=== PATIENT | male | born 1955 | race Caucasian/White ===

== ENCOUNTER 2023-09-27 06:16 | Day surgery (SDC) | payer OTHER, SELFPAY ==
[2023-09-27] VITALS (22 sets, daily range): BP systolic 110–177; BP diastolic 40–96; BMI 44.3
[2023-09-27] MEDS: NSS 408 ML IV (07:03)
[2023-09-27] MEDS: LOW STRENGTH ASPIRIN 81 MG PO (07:04)
[2023-09-27 07:57] LABS: ACT-LR - POC 158 Seconds (116-155)
--- NOTE | 2023-09-27 08:35 | ITS.CL.CATH ---
[employer] - Catheterization
Cardiac Catheterization
Procedure Report:
CARDIAC CATHETERIZATION REPORT
Date of Procedure: 09/27/2023
Referring: Chapin Colin MD
Indication: Chest pain
HEMODYNAMIC DATA
AO: 123/78
LV: 123/20
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
CORONARY ANGIOGRAPHY
Dominance: Right
Left Main: Normal
LAD: Mild luminal irregularities
Circumflex: Mild ectasia of the mid circumflex with mild luminal irregularities in the circumflex system
RCA: The RCA is a large ectatic vessel. There are trivial luminal irregularities in the proximal, mid, and distal RCA proximal to the takeoff of the large disease-free PDA. There is tapering of the AV groove branch distal to the takeoff of a small
first right posterolateral branch and proximal to the takeoff of the larger bifurcating second right posterolateral branch. The second right posterolateral branch has 80% ostial stenosis. The larger daughter branch is occluded distal to the lesion
and the smaller daughter branch is widely patent with normal flow. There is some [id number] collateral filling of the distal aspect of the occluded daughter branch. The RCA terminates with a tiny third RPL
Angioplasty: Due to his recent onset angina occurring with minimal activity, we opted to treat the 80% ostial stenosis in the bifurcating RPL 2. A 6 Sy[place] hockey-stick guide was used. Heparin was used for anticoagulation and Plavix 600 mg was
administered at the procedure conclusion. A BMW wire was successfully passed through the larger daughter branch of RPL 2 and this restored flow to the distal segment of the vessel. Angioplasty with a 2.25 x 12 trek was followed by placement of a
3.0 x 23 Xience ROLDAN which was deployed at 14 gil then postdilated with a 3.0 NC trek to 17 gil along its entire length. The final angiographic result was outstanding with no residual stenosis and nondenominational of normal distal flow to both branches
of the RPL 2
Closure Device: None-the procedure was performed via the right radial artery. The Shaun's test was normal prior to the procedure
Radiation (mGy): 1599
DAP (cm2.Gy): 128
Fluoroscopy time: 8.2 minutes
CONCLUSIONS
1: Mildly elevated LVEDP consistent with his known history of diastolic heart failure
2: Very mild anterolateral hypokinesis with EF 51%-this wall motion abnormality could be due to IVCD
3. 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
4. Successful stenting of 80% RPL 2 lesion using 3.0 x 23 Xience ROLDAN with outstanding angiographic result
5. Recommend dual antiplatelet therapy for 12 months and lifelong aspirin therapy. We will add high intensity statin at this time.
Copy to: Chapin Colin MD, Jaycob Giang MD
Domingo Alvarenga MD, [facility], [facility]
[2023-09-27] MEDS: NSS 1000 IV (08:40)
[2023-09-27 11:52] LABS: ACT-LR - POC > 397 Seconds (116-155)
--- NOTE | 2023-09-27 13:37 | W.PN.UPDATE ---
Update Note
Progress Note Update
67 yo male s/p PCI distal RCA (same day). He feels good, no cp, sob, kandi diet, voiding, amb w/o dizziness. R rad site c/d/i, EKG SB no ST changes. He will continue DAPT ASA/Plavix, we will also add atrovastatin 40mg and nitro sl. Cardiac rehab c/s.
He will f/u Dr. Colin in 4 weeks. He is for d/c home after 2pm.
CONCLUSIONS
1: Mildly elevated LVEDP consistent with his known history of diastolic heart failure
2: Very mild anterolateral hypokinesis with EF 51%-this wall motion abnormality could be due to�IVCD
3.� Single-vessel CAD of a distal RCA branch (RPL 2) as described above
4.� Successful stenting of 80% RPL 2 lesion using 3.0 x 23 Xience ROLDAN with outstanding angiographic result
5.� Recommend dual antiplatelet therapy for 12 months and lifelong aspirin therapy.� We will add high intensity statin at this time.
Copy to: Chapin Colin MD, Jaycob Giang MD
--- NOTE | 2023-09-27 14:13 | PTCARENOTE ---
pt recovered from PCI. No concerens or compliants. Amb to BR x3 to void. Rt radial band removed no bleeding . DSD intact. IV d/valeri intact. All discharge instructions to and pt with good understanding.
== END 2023-09-27 14:14 | disposition home or self-care (01) ==
LOC: CATH 06:16
PROVIDERS: ATTENDING PHYSICIAN Internal Medicine Cardiovascular Disease
DX: I25.118 Atherosclerotic heart disease of native coronary artery with other forms of angina pectoris (principal); Z79.02 Long term (current) use of antithrombotics/antiplatelets; Z79.82 Long term (current) use of aspirin; I50.32 Chronic diastolic (congestive) heart failure
CPT/HCPCS: 85347; 93005; 93458; C1725; C1769; C1874; C1887; C1894; C9600; Q9967